=== PATIENT | female | born 1995 | race African-American/Black ===

== ENCOUNTER 2022-05-08 07:10 | Emergency (ER) | payer OTHER, SELFPAY ==
--- NOTE | ~2022-05-08 | XR_ITS ---
Clinical Indication: Pain PA view of the chest: Comparison: None Findings: The lungs are clear, without evidence of focal consolidation or pleural effusion. Cardiome diastinal silhouette is within normal limits. Bones and soft tissues are unremarkable. Impression: Normal chest. Reviewed, dictated and finalized at location . Impression: Normal chest.
--- NOTE | ~2022-05-08 | XR_ITS ---
Right Shoulder Technique: AP and scapular Y views were obtained. Clinical History: Pain Findings: No fracture or dislocation is seen. Osseous alignment is anatomic. The glenohumeral and acr omioclavicular joint spaces are preserved. Soft tissues are unremarkable. Impression: Unremarkable right shoulder radiographs. Reviewed, dictated and finalized at [facility]. Impression: Unremarkable right shoulder radiographs.
[2022-05-08 07:16] VITALS: BP 160/96; PULSE 68; RESP 18; TEMP 37; O2SAT 100
[2022-05-08 07:24] VITALS: PULSE 68
--- NOTE | 2022-05-08 07:24 | ED.GENADULT ---
HPI - General Adult General Chief complaint: Unspecified Stated complaint: shoulder pain Time Seen by Provider: 05/08/22 07:17 Source: patient Mode of arrival: ambulatory Limitations: no limitations History of Present Illness HPI narrative: 26 years old -G[place]ian female presents with pain at the right side of neck right shoulder and right upper extremity like numbness and tingling when she when she go to bed at night sometimes keeps her up all night long resolves during daytime. This been going for the last 3 days. She denies any fever, chills, nausea, vomiting, headache, trauma. Related Data Allergies Allergy/AdvReac Type Severity Reaction Status Date / Time No Known Allergies Allergy Verified 05/08/22 07:24 Review of Systems Review of Systems: All systems reviewed & are unremarkable except as noted in HPI and below Exam Narrative: General appearance: Well-developed, well-nourished Skin: Normal color Head: Normocephalic, nontraumatic Eyes: Clear conjunctiva ENT: Oropharynx normal, ears normal, nose normal Neck: Supple, nontender Chest and respiratory: Airway patent, no respiratory distress, no accessory muscle use Heart: Regular rate/rhythm Abdomen: Soft, nontender, no organomegaly, quiet bowel sounds Vascular: Normal peripheral pulses, normal capillary refill. Musculoskeletal: Normal range of motion, nontender back Neurologic: Alert and oriented ?3, HEAD PAPER TESTER is normal as tested, no gross motor deficit Course Vital Signs Vital signs: Vital Signs Temperature 37.0 C 05/08/22 07:16 Pulse Rate 68 05/08/22 07:16 Respiratory Rate 18 05/08/22 07:16 Blood Pressure 160/96 H 05/08/22 07:16 Pulse Oximetry 100 05/08/22 07:16 Oxygen Delivery Room Air 05/08/22 07:16 Temperature 37.0 C 05/08/22 07:16 Pulse Rate 68 05/08/22 07:24 Respiratory Rate 18 05/08/22 07:16 Blood Pressure 160/96 H 05/08/22 07:16 Pulse Oximetry 100 05/08/22 07:16 Oxygen Delivery Room Air 05/08/22 07:16 Medical Decision Making [facility] Narrative Medical decision making narrative: Patient presents with pain, tingling numbness right upper extremity, right side of neck at night when she goes sleep and sometimes keeps her up all night long, denies any weakness of the right upper extremity or trauma. Cervical radiculopathy is my concern. Chest x-ray right shoulder x-ray showed no acute abnormalities. Physical examination was unremarkable, no local tenderness no bruises no rash no deformity neurologically intact. My plan to discharge patient on the [place] and follow-up with family physician for further evaluation. the pt was discharged to home.the pt,s condition upon discharge was fair,education was provided to the pt in reference to the final impression,discharge study results,treatment,prognosis and need for follow up . Vital Signs Vital Signs: Vital Signs Temperature 37.0 C 05/08/22 07:16 Pulse Rate 68 05/08/22 07:16 Respiratory Rate 18 05/08/22 07:16 Blood Pressure 160/96 H 05/08/22 07:16 Pulse Oximetry 100 05/08/22 07:16 Oxygen Delivery Room Air 05/08/22 07:16 Temperature 37.0 C 05/08/22 07:16 Pulse Rate 68 05/08/22 07:24 Respiratory Rate 18 05/08/22 07:16 Blood Pressure 160/96 H 05/08/22 07:16 Pulse Oximetry 100 05/08/22 07:16 Oxygen Delivery Room Air 05/08/22 07:16 Imaging Data Radiologist's impression: Impressions Chest X-Ray 05/08/22 07:46 Impression: Normal chest. Shoulder X-Ray 05/08/22 07:47 Impression: Unremarkable right shoulder radiographs. Critical Care Time Critical Care Time Critical Care Time: No Discharge Plan Discharge Cl
[2022-05-08 08:22] VITALS: BP 144/81; PULSE 79; RESP 18; O2SAT 100
== END 2022-05-08 08:23 | disposition home or self-care (01) ==
PROVIDERS: Emergency Provider Emergency Medicine
DX: M54.12 Radiculopathy, cervical region (principal)
CPT/HCPCS: 71045; 73030; 99283

== ENCOUNTER 2022-07-02 02:36 | Emergency (ER) | payer OTHER, SELFPAY ==
[2022-07-02] VITALS (12 sets, daily range): BP systolic 113–119; BP diastolic 72–76; PULSE 56–75; RESP 13–27; TEMP 36.6; O2SAT 19–100
[2022-07-02 03:33] LABS: Basophils Percent Auto 0.4 % (0.2-1.2); Eosinophils Absolute Auto 0.1 K/mm3 (0-0.3); Eosinophils Percent Auto 1.9 % (0-4.4); Hematocrit 34.8 % (37.0-47.0); Hemoglobin 11.2 g/dL (12.0-15.0); Immature Granulocyte Absolute 0.01 K/mm3 (0.00-0.031); Immature Granulocyte Percent A 0.1 % (0-0.5); Lymphocytes Percent Auto 35.6 % (18.3-44.2); Mean Corpuscular HGB Conc 32.2 g/dl (32-36); Mean Corpuscular Hemoglobin 24.1 pg (26-34); Mean Platelet Volume 11.3 fl (7.4-10.4); Monocytes Absolute Auto 0.6 K/mm3 (0.1-0.6); Monocytes Percent Auto 7.8 % (2.6-8.5); Neutrophils Percent Auto 54.2 % (45.5-73.1); Platelet Count Result 309 k/mm3 (150-375); Red Blood Count 4.64 M/mm3 (4.2-5.4); Red Cell Distribution Width 15.2 % (11.5-14.5); White Blood Count 7.3 K/mm3 (4.5-10.0)
--- NOTE | 2022-07-02 03:44 | ED.GENADULT ---
HPI - General Adult General Chief complaint: Unspecified Stated complaint: ?seeing spots. resolved Time Seen by Provider: 07/02/22 02:49 History of Present Illness HPI narrative: Patient 26-year-old female who presents the emergency department with chief complaint of a feeling weak and seeing spots in front of her eyes. The patient reports that she was recently diagnosed with hypertension and started on losartan. The patient reports that she woke up this evening felt as though her arms were heavy and reports that she saw spots in front of her eyes. The patient states this lasted for about a few seconds and then resolved by the time she arrived in the emergency department. The patient reports that she had no focal weakness denies slurred speech denied facial droop denied unilateral weakness. The patient denies paresthesias. Related Data Allergies Allergy/AdvReac Type Severity Reaction Status Date / Time No Known Allergies Allergy Verified 05/08/22 07:24 Review of Systems Review of Systems: A 10 system review of systems was completed on the patient and is negative except for what is stated in the HPI. Nursing and ancillary documentation was reviewed. Exam Narrative: GENERAL: Well-appearing, well-nourished, and in no acute distress. HEAD: Normocephalic, atraumatic. EYES: PERRLA and EOMI. ENT: Nares clear, no rhinorrhea or epistaxis. Mucous membranes moist. NECK: Supple. CHEST: Clear to auscultation. No respiratory distress. HEART: Regular rate and rhythm. No murmur heard. Normal peripheral pulses. ABDOMEN: Soft, nontender, nondistended, normal active bowel sounds. EXTREMITIES: Normal range of motion. No edema. SKIN: Warm, dry, no rash. NEURO: No focal deficits. Alert and oriented x3. PSYCH: Normal mood and affect. Course Vital Signs Vital signs: Vital Signs Temperature 36.6 C 07/02/22 02:37 Pulse Rate 60 07/02/22 02:37 Respiratory Rate 07/02/22 02:37 Blood Pressure 119/72 07/02/22 02:37 Pulse Oximetry 19 L 07/02/22 02:37 Oxygen Delivery Room Air 07/02/22 02:37 Temperature 36.6 C 07/02/22 02:37 Pulse Rate 58 L 07/02/22 04:32 Respiratory Rate 07/02/22 04:32 Blood Pressure 113/76 07/02/22 04:32 Pulse Oximetry 98 07/02/22 04:32 Oxygen Delivery Room Air 07/02/22 02:37 Medical Decision Making MDM Narrative Medical decision making narrative: Differential diagnosis includes electrolyte abnormality, dysrhythmia, adjustment to new medication EKG is sinus rhythm at rate of [address] elevation or ST depression Oratory studies were obtained on the patient which showed a normal CBC hemoglobin was 11.2 electrolytes are within normal limits. BNP was less than 20 Vital Signs Vital Signs: Vital Signs Temperature 36.6 C 07/02/22 02:37 Pulse Rate 60 07/02/22 02:37 Respiratory Rate 19 07/02/22 02:37 Blood Pressure 119/72 07/02/22 02:37 Pulse Oximetry 19 L 07/02/22 02:37 Oxygen Delivery Room Air 07/02/22 02:37 Temperature 36.6 C 07/02/22 02:37 Pulse Rate 58 L 07/02/22 04:32 Respiratory Rate 19 07/02/22 04:32 Blood Pressure 113/76 07/02/22 04:32 Pulse Oximetry 98 07/02/22 04:32 Oxygen Delivery Room Air 07/02/22 02:37 Lab Data 07/02/22 03:25 07/02/22 03:25 Labs: Lab Results 07/02/22 07/02/22 Range/Units 03:25 04:02 WBC 7.3 (4.5-10.0) K/mm3 RBC 4.64 (4.2-5.4) M/mm3 Hgb 11.2 L (12.0-15.0) g/dL Hct 34.8 L (37.0-47.0) % MCV 75.0 L (80-100) fl MCH 24.1 L (26-34) pg MCHC 32.2 (32-36) g/dl RDW 15.2 H (11.5-14.5) % Plt Count 309 (150-375) k/mm3 MPV 11.3 H (7.4-10.4) fl Immature Gran % (Auto) 0.1 (0-0.5) % Neut % (Auto) 54.2 (45.5-73.1) % Lymph % (Auto) 35.6 (18.3-44.2) % [place] % (Auto) 7.8 (2.6-8.5) % Eos % (Auto) 1.9 (0-4.4) % Baso % (Auto) 0.4 (0.2-1.2) % Lymph # (Auto) 2.60 (0.9-3.2) K/mm3 [place] # (Auto) 0.
--- NOTE | 2022-07-02 03:45 | ECG_ITS ---
Measurements Intervals [place] Rate: 52 P: 20 TN: 162 QRS: 42 QRSD: 94 T: 29 QT: 425 QTc: 396 Interpretive Statements SINUS BRADYCARDIA WITH MARKED SINUS ARRHYTHMIA INCOMPLETE RIGHT BUNDLE BRANCH BLOCK BORDERLINE ECG NO PREVIOUS ECG AVAILABLE FOR COMPARISON Electronically Signed On 07-02-2022 7:37:25 CDT by José Eagle D.O.
[2022-07-02 03:46] LABS: Alanine Aminotransferase 18 U/L (6-35); Albumin Level 4.2 g/dL (3.5-5.1); Alkaline Phosphatase 77 U/L (38-126); Anion Gap 7 mmol/L (8-16); Aspartate Amino Transferase 27 U/L (14-36); Bilirubin,Total 0.4 mg/dL (0.2-1.3); Blood Urea Nitrogen 9 mg/dL (7-17); Carbon Dioxide 26 mmol/L (22-30); Chloride 107 mmol/L (98-107); Estimated CRCL calculation 155 ml/min; Estimated Glomerular Filt Rate > 60; Glucose 99 mg/dL (65-110); Potassium 3.7 mmol/L (3.4-5.0); Sodium 140 mmol/L (137-145)
[2022-07-02 03:55] LABS: NT Pro B Type Natriuretic Pept < 20 pg/mL (19.9-100)
[2022-07-02 04:09] LABS: Appearance Urine Clear (Clear); Bilirubin Urine 1+ (Negative); Blood Urine 3+ (Negative); Color Urine Amber (Yellow); Glucose Urine UA Negative (Negative); Ketones Urine Negative (Negative); Leukocyte Esterase Ur 1+ LEU/UL (Negative); Nitrate Urine Negative (Negative); Protein Urine 2+ mg/dL (Negative); Specific Grav Ur 1.025 (1.001-1.035); Urobilinogen Urine 0.2 mg/dL (<2.0); pH Urine 5.5 (5.0-9.0)
[2022-07-02 04:11] LABS: Add Urine Microscopic? YES
== END 2022-07-02 04:48 | disposition home or self-care (01) ==
PROVIDERS: Emergency Provider Emergency Medicine
DX: N30.00 Acute cystitis without hematuria (principal); R53.1 Weakness
CPT/HCPCS: 36415; 80053; 81001; 83880; 85025; 87086; 87088; 93005; 99283

== ENCOUNTER 2022-08-17 05:28 | Emergency (ER) | payer OTHER, SELFPAY ==
--- NOTE | ~2022-08-17 | XR_ITS ---
Portable chest x-ray Comparison: 05/08/2022 Clinical History: Chest pain Findings: Lungs are clear, without focal consolidation or pleural effusion. Cardiomediastinal silho uette is stable. Bones and soft tissues are unremarkable. Impression: Normal chest. Reviewed, dictated and finalized at [facility]. Impression: Normal chest.
--- NOTE | 2022-08-17 05:32 | ECG_ITS ---
Measurements Intervals [place] Rate: 72 P: 44 [place]: 151 QRS: 10 QRSD: 89 T: 28 QT: 381 QTc: 418 Interpretive Statements SINUS RHYTHM INCOMPLETE RIGHT BUNDLE BRANCH BLOCK BORDERLINE ECG COMPARED TO ECG 07/02/2022 03:56:26 SINUS RHYTHM NOW PRESENT Electronically Signed On 08-17-2022 6:49:52 CDT by José Eagle D.O.
[2022-08-17 05:33] VITALS: PULSE 75
[2022-08-17 05:36] VITALS: BP 149/78; PULSE 77; RESP 14; TEMP 36.4; O2SAT 100
[2022-08-17 05:45] VITALS: BP 134/70; PULSE 79; RESP 19; O2SAT 98
--- NOTE | 2022-08-17 05:45 | ED.GENADULT ---
HPI - General Adult General Chief complaint: Chest Pain Stated complaint: palpitations Time Seen by Provider: 08/17/22 05:32 History of Present Illness HPI narrative: This is a 26-year-old female with a history of depression presenting ED for palpitations. Patient says that the last 3 months on most nights she has difficulty sleeping. Every night she feels like her heart is racing and she gets feelings of extreme anxiety. She was not able to sleep through the night and then eventually sleeps during the day. She has seen her primary care physician who started her on antidepressants about 1 month ago. She has actually had a Holter monitor although she has received the results yet. patient denies chest pain, difficulty breathing, abdominal pain fever chills or productive cough. Denies SI HI Related Data Allergies Allergy/AdvReac Type Severity Reaction Status Date / Time No Known Allergies Allergy Verified 08/17/22 05:32 [facility] Past Medical History Medical History Anxiety Obesity Exam Narrative: APPEARANCE: No apparent distress. patient gets tearful during the interview and start crying Head: atraumatic. EYES: EOMI, NOSE: Atraumatic NECK: Trachea midline RESPIRATORY: No increased rate of breathing, clear to auscultation CARDIOVASCULAR: RRR, no peripheral edema ABDOMINAL: Non-distended MUSCULOSKELETAl: No obvious deformities NEURO: Alert. Moving 4/4 extremities SKIN:: Warm, dry. Normal color PSYCHIATRIC: anxious Course Vital Signs Vital signs: Vital Signs Pulse Rate 75 08/17/22 05:33 Temperature 97.6 F 08/17/22 05:36 Pulse Rate 77 08/17/22 05:36 Respiratory Rate 14 08/17/22 05:36 Blood Pressure 149/78 H 08/17/22 05:36 Pulse Oximetry 100 08/17/22 05:36 Medical Decision Making [facility] Narrative Medical decision making narrative: -Presentation: 26-year-old female presenting with 3 months of palpitations and anxiety that only occur at night time. -DDX includes but is not limited to: Anxiety, panic disorder, depression, dysrhythmia, ACS, PE -Co-morbidities complicating care: obesity, depression, hypertension -Social determinants of health: patient is unemployed, lives in public housing, with her 4 children -External Chart Review: review of previous ER visits -Hx from independent Sources: none -Independent interpretation of studies: Independent EKG interpretation: Rhythm [sinus], Rate [72], [place] -[normal], [place] -[normal], QRS [narrow], QTC [normal], T waves -[negative for concerning inversions], ST Segments - [Negative for concerning elevations] Final interpretations: [Normal Sinus Rhythm] Chest x-ray unremarkable. -Discussion of Management/Consultants: none -Dx tests considered but not ordered: PERC negative -Procedures: none -Interventions: none -Shared decision making / Disposition: Patient is very anxious but otherwise well-appearing with stable vital signs. I discussed her depression and anxiety with her at length. She is comfortable following up with her primary care physician. return precautions given. -RX Vital Signs Vital Signs: Vital Signs Pulse Rate 75 08/17/22 05:33 Temperature 97.6 F 08/17/22 05:36 Pulse Rate 77 08/17/22 05:36 Respiratory Rate 14 08/17/22 05:36 Blood Pressure 149/78 H 08/17/22 05:36 Pulse Oximetry 100 08/17/22 05:36 Discharge Plan Discharge Clinical Impression: Heart palpitations, Anxiety Condition: Stable Instructions: Antibiotic Form, Anxiety (ED) Additional Instructions: You were seen in the emergency department for palpitations. Please follow-up with your primary care physician for further management. Please return to hospital if you develop chest pain difficulty breathing or would like re-evaluation. Prescriptions: No Action cephalexin 500 mg capsule 500 mg PO Q12H 7 Days Qty: 14 0RF dexamethason
== END 2022-08-17 06:20 | disposition home or self-care (01) ==
PROVIDERS: Emergency Provider Emergency Medicine
DX: F41.9 Anxiety disorder, unspecified (principal); R00.2 Palpitations
CPT/HCPCS: 71045; 93005; 99283

== ENCOUNTER 2022-08-26 02:41 | Emergency (ER) | payer OTHER, SELFPAY ==
--- NOTE | ~2022-08-26 | XR_ITS ---
XR cervical spine 4-5V DATE: 08/26/2022 03:45 INDICATION: Neck pain. Bilateral arm numbness. TECHNIQUE: AP, open-mouth, odontoid, lateral, swimmer views COMPARISON: None FINDINGS: Bilateral cervical ribs. Prominent right cervical rib appears fused with the right first ri b. There is straightening of the cervical spine which may be due to muscle spasm or positioning. C1 and C2 are normally aligned and the odontoid process is intact. No fracture or dislocation or lock ed facet or prevertebral soft tissue swelling. Cervical interspaces are preserved. IMPRESSION: Bilateral cervical ribs Reviewed, dictated and finalized at location A. IMPRESSION: Bilateral cervical ribs
[2022-08-26 02:44] VITALS: BP 124/78; PULSE 64; RESP 14; TEMP 36.6; O2SAT 100
--- NOTE | 2022-08-26 03:47 | ED.GENADULT ---
HPI - General Adult General Chief complaint: Weakness Stated complaint: numbness Time Seen by Provider: 08/26/22 02:51 Source: patient Mode of arrival: EMS Limitations: no limitations History of Present Illness HPI narrative: 26-year-old otherwise healthy here with complaints of right arm and finger tingling sensation for past 1 day , with occasional neck pain. Onset (ago): day(s) (1) Severity: mild Quality: other (Tingling sensation) Pain Consistency: intermittent Relieving factors: none Exacerbating factors: none Related Data Allergies Allergy/AdvReac Type Severity Reaction Status Date / Time No Known Allergies Allergy Verified 08/26/22 02:47 Review of Systems Review of Systems: All systems reviewed & are unremarkable except as noted in HPI and below Constitutional: Constitutional: Reports no additional constitutional complaints Eyes: Eyes: Reports no additional eye complaints ENT: Reports system reviewed and no additional complaints, except as documented Cardiovascular: Cardiovascular: Reports no additional cardiovascular complaints PMFSH Past Medical History Medical History Anxiety Obesity Exam Narrative: GENERAL: Well-appearing, Morbid obesity, and in no acute distress. HEAD: Normocephalic, atraumatic. EYES: PERRLA and EOMI. ENT: Nares clear, no rhinorrhea or epistaxis. Mucous membranes moist. NECK: Supple. CHEST: Clear to auscultation. No respiratory distress. HEART: Regular rate and rhythm. No murmur heard. Normal peripheral pulses. ABDOMEN: Soft, nontender, nondistended, normal active bowel sounds. EXTREMITIES: Normal range of motion. No edema. SKIN: Warm, dry, no rash. NEURO: No focal deficits. Alert and oriented x3. PSYCH: Normal mood and affect. Course Course Emergency Course: C-spine x-ray was normal. Symptoms may be anxiety versus paresthesias. Vital Signs Vital signs: Vital Signs Temperature 36.6 C 08/26/22 02:44 Pulse Rate 64 08/26/22 02:44 Respiratory Rate 14 08/26/22 02:44 Blood Pressure 124/78 08/26/22 02:44 Pulse Oximetry 100 08/26/22 02:44 Oxygen Delivery Room Air 08/26/22 02:44 Temperature 36.6 C 08/26/22 02:44 Pulse Rate 64 08/26/22 02:44 Respiratory Rate 14 08/26/22 02:44 Blood Pressure 124/78 08/26/22 02:44 Pulse Oximetry 100 08/26/22 02:44 Oxygen Delivery Room Air 08/26/22 02:44 Medical Decision Making Vital Signs Vital Signs: Vital Signs Temperature 36.6 C 08/26/22 02:44 Pulse Rate 64 08/26/22 02:44 Respiratory Rate 14 08/26/22 02:44 Blood Pressure 124/78 08/26/22 02:44 Pulse Oximetry 100 08/26/22 02:44 Oxygen Delivery Room Air 08/26/22 02:44 Temperature 36.6 C 08/26/22 02:44 Pulse Rate 64 08/26/22 02:44 Respiratory Rate 14 08/26/22 02:44 Blood Pressure 124/78 08/26/22 02:44 Pulse Oximetry 100 08/26/22 02:44 Oxygen Delivery Room Air 08/26/22 02:44 Imaging Data My impression: Normal C-spine Discharge Plan Discharge Clinical Impression: Paresthesia of arm Patient Disposition: Home, Self-Care Condition: Stable Instructions: Anxiety (ED) Additional Instructions: continue home medication , follow with our doctor Prescriptions: No Action cephalexin 500 mg capsule 500 mg PO Q12H 7 Days Qty: 14 0RF dexamethasone 4 mg tablet 4 mg PO TID Qty: 15 0RF Follow-up/Referrals: PHYSICIAN NOT ON STAFF,NONSTAFF [Primary Care Provider] - Kashif Boswell MD [Physician] - Time of Disposition: 03:55
[2022-08-26 03:59] VITALS: BP 114/66; PULSE 63; RESP 15; O2SAT 100
== END 2022-08-26 04:15 | disposition home or self-care (01) ==
LOC: ANHED 04:14
PROVIDERS: Emergency Provider Family Medicine
DX: R20.2 Paresthesia of skin (principal)
CPT/HCPCS: 72050; 99283

== ENCOUNTER 2022-12-23 11:04 | Emergency (ER) | payer OTHER, SELFPAY ==
--- NOTE | ~2022-12-23 | US_ITS ---
EXAMINATION: US OB <=14 wk fetus w TV INDICATION: abd discomfort, TECHNIQUE: Sonography of the pelvis was performed by transabdominal and transvaginal techniques. COMPARISON: None. RESULT: Uterus: 10.5 x 5.9 x 6.5 cm. Anteverted. Homogenous myometrium. Intrauterine gestational sac: Single present. Yolk sac: present, not directly measured. Embryo: Single present. [place] rump length: 0.34 cm, corresponding gestational age 6 weeks, 0 days. Gestational heart rate: present 129 bpm. Subgestational hematoma: Absent . Right ovary: 3.7 x 1.5 x 2.4 cm. Vascular flow is present. No adnexal mass. Left ovary: 4.5 x 3.1 x 3.8 cm. Vascular flow is present. No adnexal mass. 2.8 cm smoothly margina john thin-walled cystic ovarian structure with small foci of nonvascular internal debris may represent proteinaceous, resolving corpus luteal or resolving hemorrhagic cyst. Pelvis free fluid: Small free fluid is likely physiologic. IMPRESSION: Single, live intrauterine gestation. Estimated Gestational Age: 6 weeks, 0 days by crown rump length. CHANCE by ultrasound 08/17/2023. Reviewed, dictated and finalized at location [facility]. REFINISHER IMPRESSION: Single, live intrauterine gestation. Estimated Gestational Age: 6 weeks, 0 days by crown rump length. CHANCE by ultras ound 08/17/2023.
[2022-12-23 11:09] VITALS: BP 122/60; PULSE 70; RESP 18; TEMP 37.2; O2SAT 100
[2022-12-23 12:13] VITALS: BP 123/60; PULSE 82; RESP 20; O2SAT 100
--- NOTE | 2022-12-23 12:13 | ED.ABDPAIN ---
HPI - Abdominal Pain General Chief Complaint: Abdominal Pain <Verenice Hart PA-C - Last Filed: 12/23/22 15:30> Stated Complaint: Abd pain/ST <WESLEY Hernandez Last Filed: 12/23/22 15:30> Time Seen by Provider: 12/23/22 11:08 <WESLEY Hernandez Last Filed: 12/23/22 15:30> Source: patient <WESLEY Hernandez Last Filed: 12/23/22 15:30> Mode of arrival: EMS <WESLEY Hernandez Last Filed: 12/23/22 15:30> Limitations: no limitations <WESLEY Hernandez Last Filed: 12/23/22 15:30> History of Present Illness HPI narrative: This is a 27 year old female that presents to the ER for nausea. Ongoing over the last couple of days. Reports she is currently 6 weeks . She is followed with [facility]. One of her children currently has a stomach virus. She additionally reports cough, congestion and sore throat. Denies fever, vomiting, vaginal bleeding, pelvic cramping, or diarrhea. <WESLEY Hernandez Last Filed: 12/23/22 15:30> Related Data Allergies/Adverse Reactions: Allergies Allergy/AdvReac Type Severity Reaction Status Date / Time No Known Allergies Allergy Verified 12/23/22 11:18 <Verenice Hart PA-C - Last Filed: 12/23/22 15:30> Review of Systems Review of Systems: CONSTITUTIONAL: Denies fever ENT: Reports rhinorrhea, congestion, sore throat RESPIRATORY: Reports cough. Denies dyspnea. GASTROINTESTINAL: Reports nausea. Denies vomiting, or diarrhea. GENITOURINARY: Denies dysuria or hematuria. <Verenice Hart PA-C - Last Filed: 12/23/22 15:30> All systems reviewed & are unremarkable except as noted in HPI and below <WESLEY Hernandez Last Filed: 12/23/22 15:30> PMFSH Past Medical History Medical History: Medical History Anxiety Obesity <Verenice Hart PA-C - Last Filed: 12/23/22 15:30> Social History Social History: Social History (Updated 12/23/22 @ 12:16 by Verenice Hart PA-C) Smoking status: Never smoker <Verenice Hart PA-C - Last Filed: 12/23/22 15:30> Exam Narrative: GENERAL: Well-appearing, well-nourished, and in no acute distress. HEAD: Normocephalic, atraumatic. EYES: EOMI. ENT: Nares clear, no rhinorrhea or epistaxis. Mucous membranes moist. Oropharynx without tonsillar hypertrophy exudate or other lesions. Bilateral TMs pearly [place] non-bulging NECK: Supple. No adenopathy or masses. CHEST: Clear to auscultation. No respiratory distress. No wheezes rales or rhonchi HEART: Regular rate and rhythm. No murmur heard. Normal peripheral pulses. ABDOMEN: Soft, nontender, nondistended, normal active bowel sounds. EXTREMITIES: Normal range of motion. No edema. SKIN: Warm, dry, no rash. NEURO: No focal deficits. Alert and oriented x3. PSYCH: Normal mood and affect <Verenice Hart PA-C - Last Filed: 12/23/22 15:30> Course Course Emergency Course: Patient updated on work-up and agrees with plan of care <Verenice Hart PA-C - Last Filed: 12/23/22 15:30> BLOW MOLDER/PA Physician Supervision I agree with midlevel documentation; I performed the medical decision making component of this evaluation. <Marlin Pennington MD - Last Filed: 12/23/22 18:03> Vital Signs Vital signs: Vital Signs Temperature 98.9 F 12/23/22 11:09 Pulse Rate 70 12/23/22 11:09 Respiratory Rate 18 12/23/22 11:09 Blood Pressure 122/60 12/23/22 11:09 Pulse Oximetry 100 12/23/22 11:09 Oxygen Delivery Room Air 12/23/22 11:09 Temperature 98.9 F 12/23/22 11:09 Pulse Rate 70 12/23/22 14:40 Respiratory Rate 20 12/23/22 14:40 Blood Pressure 115/68 11/11/23 14:40 Pulse Oximetry 100 12/23/22 14:40 Oxygen Delivery Room Air 12/23/22 11:09 <Verenice Hart PA-C - Last Filed: 12/23/22 15:30> Vital Signs Temperature 98.9 F 12/23/22 11:09 Pulse Rate 70 12/23/22 11:09 Respiratory Rate 18
[2022-12-23 12:20] LABS: Strep Group A RT-PCR NOT DETECTED (Negative)
[2022-12-23 12:23] LABS: Appearance Urine Clear (Clear); Bacteria Urine None Seen /hpf; Bilirubin Urine Negative (Negative); Blood Urine Negative (Negative); Color Urine Yellow (Yellow); Glucose Urine UA Negative (Negative); Ketones Urine Negative (Negative); Leukocyte Esterase Ur Trace LEU/UL (Negative); Need Manual Microscopic Reviewed; Nitrate Urine Negative (Negative); Non Pathogenic Casts 0-2; Protein Urine Negative (Negative); Specific Grav Ur 1.014 (1.001-1.035); Squamous Epithelial Cell Urine Occasional /hpf (Few); WBC Urine 0-5 /hpf; pH Urine 6.5 (5.0-9.0)
[2022-12-23 12:25] LABS: Add Urine Microscopic? YES; Basophils Percent Auto 0.5 % (0.2-1.2); Eosinophils Absolute Auto 0.3 K/mm3 (0-0.3); Eosinophils Percent Auto 3.2 % (0-4.4); Hemoglobin 11.5 g/dL (12.0-15.0); Immature Granulocyte Absolute 0.03 K/mm3 (0.00-0.031); Immature Granulocyte Percent A 0.4 % (0-0.5); Lymphocytes Absolute Auto 2.67 K/mm3 (0.9-3.2); Lymphocytes Percent Auto 33.8 % (18.3-44.2); Mean Corpuscular HGB Conc 31.1 g/dl (32-36); Mean Corpuscular Volume 77.1 fl (80-100); Mean Platelet Volume 11.6 fl (7.4-10.4); Monocytes Absolute Auto 0.6 K/mm3 (0.1-0.6); Monocytes Percent Auto 7.3 % (2.6-8.5); Neutrophils Absolute Auto 4.3 K/mm3 (1.3-6.7); Neutrophils Percent Auto 54.8 % (45.5-73.1); Platelet Count Result 330 k/mm3 (150-375); Red Cell Distribution Width 14.5 % (11.5-14.5); White Blood Count 7.9 K/mm3 (4.5-10.0)
[2022-12-23] MEDS: FAMOTIDINE 20 MG/2 ML VIAL IV PUSH (12:30)
[2022-12-23] MEDS: ONDANSETRON INJ 4 MG/2 ML VIAL IV PUSH (12:30)
[2022-12-23 12:31] LABS: Influenza A QL RT-PCR Negative (Negative); Influenza B QL RT-PCR Negative (Negative); SARS-CoV-2 RNA PCR Negative (Negative)
[2022-12-23 12:34] VITALS: BP 115/58; PULSE 70; RESP 14; O2SAT 100
[2022-12-23 12:37] LABS: Atypical Lymphocytes Present; Hypochromasia 1+ (NORMAL); Microcytosis 1+ (NORMAL); Platelet Estimate Adequate (Adequate); Schistocytes None Seen (NORMAL)
[2022-12-23 12:39] LABS: Alanine Aminotransferase 16 U/L (6-35); Albumin Level 4.3 g/dL (3.5-5.1); Alkaline Phosphatase 70 U/L (38-126); Anion Gap 11 mmol/L (8-16); Aspartate Amino Transferase 19 U/L (14-36); Bilirubin,Total 0.4 mg/dL (0.2-1.3); Blood Urea Nitrogen 9 mg/dL (7-17); Calcium 9.3 mg/dL (8.4-10.2); Carbon Dioxide 21 mmol/L (22-30); Chloride 104 mmol/L (98-107); Estimated CRCL calculation 189 ml/min; Estimated Glomerular Filt Rate > 60; Glucose 73 mg/dL (65-110); Lipase 90 U/L (23-300); Potassium 3.8 mmol/L (3.4-5.0); Sodium 136 mmol/L (137-145)
[2022-12-23 14:40] VITALS: BP 115/68; PULSE 70; RESP 20; O2SAT 100
== END 2022-12-23 15:36 | disposition home or self-care (01) ==
PROVIDERS: Emergency Provider Physician Assistant
DX: O26.891 Other specified pregnancy related conditions, first trimester (principal); R11.2 Nausea with vomiting, unspecified; B34.9 Viral infection, unspecified; O99.011 Anemia complicating pregnancy, first trimester; Z3A.01 Less than 8 weeks gestation of pregnancy; Z20.822 Contact with and (suspected) exposure to COVID-19
CPT/HCPCS: 36415; 76801; 76817; 80053; 81001; 81025; 83690; 84702; 85025; 87636; 87651; 96374; 96375; 99284; J2405

== ENCOUNTER 2023-02-01 07:55 | Emergency (ER) | payer OTHER, SELFPAY ==
--- NOTE | ~2023-02-01 | US_ITS ---
EXAMINATION: US OB <=14 wk fetus w TV DATE: 02/01/2023 11:07 INDICATION: Possible leakage of fluid during first trimester TECHNIQUE: Real-time pelvic transabdominal and transvaginal ultrasound was performed. COMPARISON: 12/23/2022 FINDINGS: The uterus measures 13.2 x 8.1 x 8.6 cm. There is an intrauterine gestational sac. There is a 4.1 x 0.9 x 0.9 cm fluid collection adjacent to the gestational sac. A yolk sac is identified. Fet al heart motion is identified measuring 160 beats per minute (bpm) by M-mode Doppler. The crown rump length measures 5.1 cm, which correlates with an estimated gestational age of 11 weeks and 6 da y(s) (+/-) 7 day(s). The right ovary is not visualized however no right adnexal abnormality is seen. The left ovary measur es 3.9 x 2.9 x 2.8 cm and contains a cyst. There is normal vascular flow in the left ovary. The amnio tic fluid volume is subjectively normal. There is a small amount of free fluid in the pelvis. IMPRESSION: 1. Live intrauterine with an estimated gestational age of 11 weeks and 6 day(s) (+/-) 7 day (s) and an estimated delivery date of 08/17/2023. 2. Small fluid collection adjacent to the gestational sac of unclear significance. Subjectively manuel l amniotic fluid volume. Reviewed, dictated and finalized at location [facility] IMPRESSION: 1. Live intrauterine with an estimated gestational age of 11 weeks an d 6 day(s) (+/-) 7 day(s) and an estimated delivery date of 08/17/2023. 2. Small fluid collection adjacent to the gestational sac of unclear significan ce. Subjectively normal amniotic fluid volume.
[2023-02-01 07:51] VITALS: BP 134/62; PULSE 83; RESP 14; TEMP 36.9; O2SAT 100
--- NOTE | 2023-02-01 08:04 | ED.FEMALEGU ---
HPI - Female Genitourinary General Chief complaint: HAIR SPECIALIST Stated complaint: 11wks preg/ ?water broke Time Seen by Provider: 02/01/23 08:00 Source: patient Mode of arrival: ambulatory Limitations: no limitations History of Present Illness HPI Narrative: 27 yo female who is 11w6d by both LMP 11/10/22 and CHANCE 08/17/23 is concerned her water broke. SHe noticed clear fluid leaking. No abdominal pain. Her OBGyn is through [facility]; has established with them for this and recently completed glucose testing last week. No vaginal bleeding, contractions, cramps, dysuria, hematuria, urgency, frequency. She felt a gush at 6:30 of clear fluid. No complications during this . No vaginal/groin pain. Related Data Allergies Allergy/AdvReac Type Severity Reaction Status Date / Time No Known Allergies Allergy Verified 02/09/23 03:59 PMFSH Past Medical History Medical History Anxiety Obesity Social History Social History Smoking status: Never smoker Exam Narrative: GENERAL: Well-appearing, well-nourished, and in no acute distress. HEAD: Normocephalic, atraumatic. EYES: Non injected, non icteric ENT: Nares clear, no rhinorrhea or epistaxis. NECK: Supple. CHEST: Speaks in complete sentences. No respiratory distress. HEART: Regular rate and rhythm. . ABDOMEN: Protuberant/obese but Soft, nondistended. Non tender to palpation. : Normal female external genitalia. Some fluid in vagina. No vaginal bleeding. No tenderness on bimanual exam or appreciable fistula. EXTREMITIES: Normal range of motion. No edema. SKIN: Warm, dry, no rash. NEURO: No focal deficits. Alert and oriented x3. PSYCH: Normal mood and affect. Course Vital Signs Vital signs: Vital Signs Temperature 98.4 F 02/01/23 07:51 Pulse Rate 83 02/01/23 07:51 Respiratory Rate 14 02/01/23 07:51 Blood Pressure 134/62 02/01/23 07:51 Pulse Oximetry 100 02/01/23 07:51 Oxygen Delivery Room Air 02/01/23 07:51 Temperature 98.4 F 02/01/23 07:51 Pulse Rate 75 02/01/23 13:14 Respiratory Rate 15 02/01/23 13:14 Blood Pressure 132/72 02/01/23 13:14 Pulse Oximetry 100 02/01/23 13:14 Oxygen Delivery Room Air 02/01/23 07:51 MDM - Female Genitourinary MDM Narrative Medical decision making narrative: 27 yo female who is 11w6d by both LMP 11/10/22 and CHANCE 08/17/23 is concerned her water broke. SHe noticed clear fluid leaking. No pain. Physical exam and work up unremarkable except patient has possible evidence of a UTI and I suspect she also has BV. Will empirically treat for the latter and she is given first dose of antibiotics with course for the rest in outpatient. I did discuss US with [facility] and discuss HPI. In agreement with stable for discharge with return precautions. Differential Diagnosis Differential diagnosis: Likely urinary tract infection, bacterial vaginosis, trichomoniasis, cervicitis, cystitis and other (vaginal vasicular fistula) Lab Data Attestation: I reviewed the patient's lab results. Lab results narrative: Anemia. Normal renal function. 02/01/23 09:50 02/01/23 09:50 Labs: Lab Results 02/01/23 02/01/23 02/01/23 Range/Units 08:06 09:50 10:55 WBC 6.7 (4.5-10.0) K/mm3 RBC 4.81 (4.2-5.4) M/mm3 Hgb 11.5 L (12.0-15.0) g/dL Hct 36.1 L (37.0-47.0) % MCV 75.1 L (80-100) fl MCH 23.9 L (26-34) pg MCHC 31.9 L (32-36) g/dl RDW 14.9 H (11.5-14.5) % Plt Count 373 (150-375) k/mm3 MPV 11.4 H (7.4-10.4) fl Immature Gran % (Auto) 0.3 (0-0.5) % Neut % (Auto) 71.6 (45.5-73.1) % Lymph % (Auto) 19.7 (18.3-44.2) % [place] % (Auto) 5.7 (2.6-8.5) % Eos % (Auto) 2.4 (0-4.4) % Baso % (Auto) 0.3 (0.2-1.2) % Lymph # (Auto) 1.32 (0.9-3.2)
[2023-02-01 08:21] LABS: Appearance Urine Cloudy (Clear); Bacteria Urine None Seen /hpf; Bilirubin Urine Negative (Negative); Color Urine Yellow (Yellow); Glucose Urine UA Negative (Negative); Ketones Urine Negative (Negative); Leukocyte Esterase Ur Trace LEU/UL (Negative); Nitrate Urine Negative (Negative); Non Pathogenic Casts 0-2; Protein Urine Negative (Negative); Specific Grav Ur 1.013 (1.001-1.035); Squamous Epithelial Cell Urine None seen /hpf (Few); Urobilinogen Urine 0.2 mg/dL (<2.0); WBC Urine 0-5 /hpf
[2023-02-01 08:23] LABS: Add Urine Microscopic? YES
[2023-02-01] MEDS: CIPROFLOXACIN 500 MG TAB PO (09:44)
[2023-02-01 09:46] VITALS: BP 137/54; PULSE 77; RESP 17; O2SAT 100
[2023-02-01 09:57] LABS: Basophils Percent Auto 0.3 % (0.2-1.2); Eosinophils Absolute Auto 0.2 K/mm3 (0-0.3); Eosinophils Percent Auto 2.4 % (0-4.4); Hematocrit 36.1 % (37.0-47.0); Hemoglobin 11.5 g/dL (12.0-15.0); Immature Granulocyte Absolute 0.02 K/mm3 (0.00-0.031); Immature Granulocyte Percent A 0.3 % (0-0.5); Lymphocytes Absolute Auto 1.32 K/mm3 (0.9-3.2); Lymphocytes Percent Auto 19.7 % (18.3-44.2); Mean Corpuscular HGB Conc 31.9 g/dl (32-36); Mean Corpuscular Hemoglobin 23.9 pg (26-34); Mean Corpuscular Volume 75.1 fl (80-100); Mean Platelet Volume 11.4 fl (7.4-10.4); Monocytes Absolute Auto 0.4 K/mm3 (0.1-0.6); Monocytes Percent Auto 5.7 % (2.6-8.5); Neutrophils Absolute Auto 4.8 K/mm3 (1.3-6.7); Neutrophils Percent Auto 71.6 % (45.5-73.1); Platelet Count Result 373 k/mm3 (150-375); Red Blood Count 4.81 M/mm3 (4.2-5.4); Red Cell Distribution Width 14.9 % (11.5-14.5); White Blood Count 6.7 K/mm3 (4.5-10.0)
[2023-02-01 10:08] LABS: Anion Gap 9 mmol/L (8-16); Blood Urea Nitrogen 5 mg/dL (7-17); Calcium 9.2 mg/dL (8.4-10.2); Carbon Dioxide 22 mmol/L (22-30); Chloride 104 mmol/L (98-107); Estimated CRCL calculation 204 ml/min; Estimated Glomerular Filt Rate > 60; Glucose 87 mg/dL (65-110); Sodium 135 mmol/L (137-145)
[2023-02-01 11:01] LABS: Trichomonas Vag PCR NOT DETECTED (NOT DETECTE)
[2023-02-01 11:24] LABS: Chlamydia trachomatis NOT DETECTED (NOT DETECTE); Neisseria gonorrhoeae PCR NOT DETECTED (NOT DETECTE)
[2023-02-01 13:14] VITALS: BP 132/72; PULSE 75; RESP 15; O2SAT 100
[2023-02-01] MEDS: metroNIDAZOLE 500 MG TABLET 2000 MG PO (13:49)
[2023-02-14 10:24] LABS: Reference Lab Test Result Negative
== END 2023-02-01 13:56 | disposition home or self-care (01) ==
PROVIDERS: Emergency Provider Student in an Organized Health Care Education/Training Program
DX: O23.41 Unspecified infection of urinary tract in pregnancy, first trimester (principal); N39.0 Urinary tract infection, site not specified; O99.211 Obesity complicating pregnancy, first trimester; E66.9 Obesity, unspecified; Z3A.11 11 weeks gestation of pregnancy
CPT/HCPCS: 36415; 76801; 76817; 80048; 81001; 81025; 81513; 84702; 85025; 87491; 87591; 87661; 99284; A9270

== ENCOUNTER 2023-02-09 04:18 | Emergency (ER) | payer OTHER, SELFPAY ==
[2023-02-09 03:53] VITALS: BP 155/71; PULSE 100; RESP 23; TEMP 37.2; O2SAT 100
[2023-02-09] MEDS: SODIUM CHLORIDE 0.9% IV 1,000 ML 999 ML IV CONT (04:27)
[2023-02-09] MEDS: METOCLOPRAMIDE HCL INJ 10 MG/2 ML VIAL IV PUSH (04:27)
[2023-02-09] MEDS: diphenhydrAMINE HCl INJ 50 MG/ML VIAL IV PUSH (04:27)
[2023-02-09 04:49] VITALS: BP 150/88; PULSE 99; RESP 14; O2SAT 99
--- NOTE | 2023-02-09 05:06 | ED.GENADULT ---
HPI - General Adult General Chief complaint: Headache Stated complaint: HEADACHE History of Present Illness HPI narrative: Patient is a 27-year-old female who presents emergency department chief complaint of headache. Patient reports she is 13 weeks reports that she has history of hypertension and takes medication for hypertension. Patient reports that yesterday is when her symptoms started reports that she has had some nausea with it reports the light bothers her eyes the patient denies focal neurological deficit reports no vaginal bleeding and denies abdominal pain Related Data Allergies Allergy/AdvReac Type Severity Reaction Status Date / Time No Known Allergies Allergy Verified 02/09/23 03:59 Review of Systems Review of Systems: A 10 system review of systems was completed on the patient and is negative except for what is stated in the HPI. Nursing and ancillary documentation was reviewed. PMFSH Past Medical History Medical History Anxiety Obesity Social History Social History Smoking status: Never smoker Exam Narrative: GENERAL: Well-appearing, well-nourished, and in no acute distress. HEAD: Normocephalic, atraumatic. EYES: PERRLA and EOMI. ENT: Nares clear, no rhinorrhea or epistaxis. Mucous membranes moist. NECK: Supple. CHEST: Clear to auscultation. No respiratory distress. HEART: Regular rate and rhythm. No murmur heard. Normal peripheral pulses. ABDOMEN: Soft, nontender, nondistended, normal active bowel sounds. EXTREMITIES: Normal range of motion. No edema. SKIN: Warm, dry, no rash. NEURO: No focal deficits. Alert and oriented x3. PSYCH: Normal mood and affect. Course Vital Signs Vital signs: Vital Signs Temperature 37.2 C 02/09/23 03:53 Pulse Rate 100 02/09/23 03:53 Respiratory Rate 23 H 02/09/23 03:53 Blood Pressure 155/71 H 02/09/23 03:53 Pulse Oximetry 100 02/09/23 03:53 Oxygen Delivery Room Air 02/09/23 03:53 Temperature 37.2 C 02/09/23 03:53 Pulse Rate 99 02/09/23 04:49 Respiratory Rate 14 02/09/23 04:49 Blood Pressure 150/88 H 02/09/23 04:49 Pulse Oximetry 99 02/09/23 04:49 Oxygen Delivery Room Air 02/09/23 03:53 Medical Decision Making MDM Narrative Medical decision making narrative: Differential diagnosis includes migraine headache, COVID-19, strep pharyngitis Patient received IV fluids Reglan and Benadryl patient is feeling much better at this time strep was negative COVID was positive RSV and influenza were negative. Vital Signs Vital Signs: Vital Signs Temperature 37.2 C 02/09/23 03:53 Pulse Rate 100 02/09/23 03:53 Respiratory Rate 23 H 02/09/23 03:53 Blood Pressure 155/71 H 02/09/23 03:53 Pulse Oximetry 100 02/09/23 03:53 Oxygen Delivery Room Air 02/09/23 03:53 Temperature 37.2 C 02/09/23 03:53 Pulse Rate 99 02/09/23 04:49 Respiratory Rate 14 02/09/23 04:49 Blood Pressure 150/88 H 02/09/23 04:49 Pulse Oximetry 99 02/09/23 04:49 Oxygen Delivery Room Air 02/09/23 03:53 Lab Data Labs: Lab Results 02/09/23 Range/Units 04:47 Influenza A (RT-PCR) Negative (Negative) Influenza B (RT-PCR) Negative (Negative) RSV (RT-PCR) Negative (Negative) SARS-CoV-2 RNA (RT-PCR) Positive A (Negative) Group A Strep (PCR) Not detected (Negative) Discharge Plan Discharge Clinical Impression: Headache, COVID-19 Patient Disposition: Home, Self-Care Condition: Stable Instructions: Antibiotic Form, Acute Headache (ED), COVID-19 (Coronavirus Disease 2019) (ED) Prescriptions: No Action cephalexin 500 mg capsule 500 mg PO Q12H 7 Days Qty: 14 0RF metoclopramide HCl 5 mg tablet 5 mg PO Q6H Qty: 14 0RF dexamethasone 4 mg tablet 4 mg PO TID Qty: 15 0RF ciprofloxacin HCl 500 mg tablet 50
[2023-02-09 05:16] LABS: Strep Group A RT-PCR NOT DETECTED (Negative)
[2023-02-09 05:30] LABS: Influenza A QL RT-PCR Negative (Negative); Influenza B QL RT-PCR Negative (Negative); RSV RNA, RT-PCR Negative (Negative); SARS-CoV-2 RNA PCR Positive (Negative)
== END 2023-02-09 06:00 | disposition home or self-care (01) ==
PROVIDERS: Emergency Provider Emergency Medicine
DX: O98.511 Other viral diseases complicating pregnancy, first trimester (principal); U07.1 COVID-19; R51.9 Headache, unspecified; O99.211 Obesity complicating pregnancy, first trimester; E66.9 Obesity, unspecified; Z3A.13 13 weeks gestation of pregnancy
CPT/HCPCS: 87637; 87651; 96361; 96374; 96375; 99284; J1200; J2765; J7030